=== PATIENT | male | born 1985 | race Caucasian/White ===

== ENCOUNTER 2020-01-31 21:49 | Emergency (ER) | payer MEDICAID, SELFPAY ==
--- NOTE | 2020-01-31 22:03 | ED.WOUNDLAC ---
HPI - Wound/Laceration General Chief Complaint: Wound/Laceration Stated Complaint: laceration on L thumb Time Seen by Provider: 01/31/20 22:09 Source: patient Mode of arrival: ambulatory Limitations: no limitations History of Present Illness HPI narrative: 34-year-old right-handed man comes in today complaining of a laceration to his left dorsal thumb that occurred approximately 2 hours ago. Patient states he was using a knife to open a salad dressing model. He denies any numbness or tingling and states that he has had a tetanus shot within the last 5 years. Onset (ago): hour(s) (2) Extremity Location: Left: hand Place: home Patient tetanus UTD: Yes Context: accidental and sharp object use Associated symptoms: pain Treatments prior to arrival: bandage Related Data Home Medications Medication Instructions Recorded Confirmed No Home Medications 01/31/20 01/31/20 Allergies Allergy/AdvReac Type Severity Reaction Status Date / Time No Known Allergies Allergy Verified 01/31/20 22:19 Review of Systems Constitutional: Constitutional: Denies chills and Denies fever(s) Eyes: Eyes: Denies change in vision and Denies photophobia Cardiovascular: Cardiovascular: Denies chest pain and Denies radiating jaw, neck or arm pain Respiratory: Respiratory: Denies cough and Denies dyspnea Gastrointestinal: Gastrointestinal: Denies nausea and Denies vomiting Musculoskeletal: Musculoskeletal: Denies back pain and Denies joint swelling Integumentary/Breasts: Skin/Breast: Denies pruritus, Denies erythema and Denies rash Neurologic: Denies vertigo, Denies dizziness and Denies syncope Hematologic/Lymphatic: Hematologic/Lymphatic: Denies easy bleeding and Denies easy bruising Allergic/Immunologic: Allergic/Immunologic: Denies lip swelling and Denies wheezing [facility] Social History Social History (Updated 01/31/20 @ 22:45 by Kiet Walker MD) Smoking status: Never smoker Alcohol intake: never Substance use: never Living arrangements: with family Exam Const: General: healthy appearing, no acute distress and alert Orientation/consciousness: patient oriented x3 Resp: Effort & Inspection: normal respiratory effort and not labored Auscultation: clear to auscultation bilaterally, no rales, no rhonchi and no wheezes Cardio: Rate: regular rate Rhythm: regular rhythm Heart sounds: no murmurs Skin: General skin exam: normal color, no jaundice and no pallor Rashes: no rashes Other: 1 x 2 cm diagonal laceration across the dorsal aspect of the IP in the left thumb. Continuous bleeding. Distal neurovascular exam is intact. Neuro: General: patient oriented x3, moves all extremities, no focal motor deficits and CN's II-XI intact bilaterally Speech: normal speech Extrem: General: normal to inspection and no clubbing, cyanosis or edema Psych: Appearance: grossly normal and well kempt Mental Status: mental status grossly normal Affect: normal affect Attitude: cooperative Thought content: Yes Normal thought content present Procedures Laceration Laceration 1: Date: 01/31/20 Time: 22:15 Site: hand Side (If applicable): left Size (cm): 1.2 Description: linear Depth: simple, single layer Local Anesthetic: lidocaine 1% Amount of anesthesia used (mL): 2.5 Pre-repair: wound explored, irrigated extensively and deep structures intact ====== Skin Level ====== Skin layer closed with: nylon Size (cm): 4-0 Number of sutures: 4 Technique: simple, interrupted ====== Subcutaneous Layer ====== ====== Muscle Layer ====== ====== Tendon Layer ====== Discharge Plan Discharge Clinical Impression: Laceration of left thumb Patient Disposition: Home, Self-Care Condition: Stable Instructions: Care For Your Stitches (ED), Laceration (ED) Additional Instructions: 4 sutures to come out in 12 days. Keep th
[2020-01-31 22:20] VITALS: BP 165/108; PULSE 115; RESP 16; TEMP 36.8; O2SAT 98
== END 2020-01-31 23:00 | disposition home or self-care (01) ==
PROVIDERS: Emergency Provider Emergency Medicine
DX: S61.012A Laceration without foreign body of left thumb without damage to nail, initial encounter (principal); W26.0XXA Contact with knife, initial encounter
CPT/HCPCS: 12001; 99282

== ENCOUNTER 2020-02-15 01:02 | Emergency (ER) | payer OTHER, SELFPAY ==
[2020-02-15 01:15] VITALS: BP 158/98; PULSE 94; RESP 18; TEMP 36.3; O2SAT 100
--- NOTE | 2020-02-15 01:27 | ED.LOWEXIN ---
HPI - Extremity Injury (Lower) General Chief Complaint: Wound/Laceration Stated Complaint: WOUND CHECK Source: patient Mode of arrival: ambulatory Limitations: no limitations History of Present Illness HPI Narrative: Left thumb laceration 01/30; accidental injury with a knife. Sutured at [facility]. Pt. states the area around the sutures was oozing and bloody starting 2.5 days ago, lasting for 1.5 days. Dima works at [employer] and at an [employer] shop. He's scheduled to work tomorrow; wondering how the wound looks and if he should go back to work tomorrow. Related Data Home Medications Medication Instructions Recorded Confirmed No Home Medications 01/31/20 01/31/20 Allergies Allergy/AdvReac Type Severity Reaction Status Date / Time No Known Allergies Allergy Verified 01/31/20 22:19 Review of Systems Constitutional: Constitutional: Denies chills and Denies fever(s) Musculoskeletal: Comments: Denies pain with thumb movement. No drainage or bleeding x 2 days. [facility] Social History Social History (Updated 01/31/20 @ 22:45 by Kiet Walker MD) Smoking status: Never smoker Alcohol intake: never Substance use: never Exam Extrem: Left upper extremity: hand (lac. dorsal L thumb, IP joint, sutured. Underlying swelling.Not red/tender) normal capillary refill, neuromotor exam normal, tendon exam abnormal, normal ROM of fingers and other (Full left thumb ROM and strength. Light touch thumb is intact. ); no unusual warmth Course Course Emergency Course: sutures removed. No dehiscence. No drainage. Vital Signs Vital signs: Vital Signs Temperature 36.3 C L 02/15/20 01:15 Pulse Rate 94 02/15/20 01:15 Respiratory Rate 18 02/15/20 01:15 Blood Pressure 158/98 H 02/15/20 01:15 Pulse Oximetry 100 02/15/20 01:15 Temperature 36.3 C L 02/15/20 02:15 Pulse Rate 91 02/15/20 02:15 Respiratory Rate 20 02/15/20 02:15 Blood Pressure 158/94 H 02/15/20 02:15 Pulse Oximetry 100 02/15/20 02:15 MDM - Extremity Injury (Lower) MDM Narrative Medical decision making narrative: Wound is healing. No need to be off work. Discharge Plan Discharge Clinical Impression: Laceration of left thumb Patient Disposition: Home, Self-Care Condition: Stable Instructions: Laceration (ED) Additional Instructions: Follow up with your primary care doctor if pain, redness or discharge or no improvement in one week. Okay to return to work tomorrow. Prescriptions: No Action No Home Medications RF: 0 Follow-up/Referrals: UNKNOWN,DOCTOR [Primary Care Provider] - Time of Disposition: 01:34 Discharge Date/Time: 02/15/20 02:20
[2020-02-15 02:15] VITALS: BP 158/94; PULSE 91; RESP 20; TEMP 36.3; O2SAT 100
== END 2020-02-15 02:20 | disposition home or self-care (01) ==
PROVIDERS: Emergency Provider Family Medicine
DX: S61.012D Laceration without foreign body of left thumb without damage to nail, subsequent encounter (principal); W26.0XXD Contact with knife, subsequent encounter
CPT/HCPCS: 99281

== ENCOUNTER 2020-03-24 01:06 | Emergency (ER) | payer OTHER, SELFPAY ==
--- NOTE | ~2020-03-24 | XR_ITS ---
EXAMINATION: XR elbow RT min 3V DATE: 03/24/2020 01:37 INDICATION: Right elbow pain. Injury 5 days ago. TECHNIQUE: 4 views of right elbow were obtained. COMPARISON: None. FINDINGS: Bone alignment is normal. No fracture. Joint spaces are well maintained. There is no elbow joint effusion. There is soft tissue swelling overlying the olecranon. IMPRESSION: 1. No fracture. Reviewed, dictated and finalized at location A. IMPRESSION: 1. No fracture.
[2020-03-24 01:19] VITALS: BP 163/97; PULSE 99; RESP 18; TEMP 36.8; O2SAT 99
--- NOTE | 2020-03-24 01:30 | ED.UPPEXIN ---
HPI - Extremity Injury (Upper) General Chief Complaint: Extremity Injury, Upper Stated Complaint: 34YO male w/ right elbow PAIN after injury where he hit his elbow on corner of furniture 5 days ago. Here for eval but admits swelling has gotten better. Related Data Allergies Allergy/AdvReac Type Severity Reaction Status Date / Time No Known Allergies Allergy Verified 02/23/20 07:06 Review of Systems Review of Systems: All systems reviewed & are unremarkable except as noted in HPI and below Constitutional: Constitutional: Reports no additional constitutional complaints Cardiovascular: Cardiovascular: Reports no additional cardiovascular complaints Respiratory: Respiratory: Reports no additional respiratory complaints Gastrointestinal: Gastrointestinal: Reports no additional gastrointestinal complaints Musculoskeletal: Musculoskeletal: Reports arthralgias (Posterior R Elbow pain) Integumentary/Breasts: Skin/Breast: Reports system reviewed and no additional complaints, except as docu and Reports as per HPI Neurologic: Reports system reviewed and no additional complaints, except as documented PMFSH Past Medical History Medical History Benign essential HTN Generalized anxiety disorder No active medical problems Surgical History Surgical History H/O right knee surgery History of hernia repair As a child Social History Social History Smoking status: Never smoker Alcohol intake: never Substance use: never Exam Const: General: no acute distress and alert Orientation/consciousness: patient oriented x3 HENMT: Head: normal to inspection Eyes: Pupils: Equal, round and reactive pupils present Neck: Neck: normal visual inspection Chest: Chest palpation & inspection: normal inspection of the chest Resp: Effort & Inspection: normal respiratory effort Auscultation: clear to auscultation bilaterally Cardio: Rate: regular rate Neuro: General: patient oriented x3, moves all extremities, no focal motor deficits and CN's II-XI intact bilaterally Extrem: Other: Posterior R Elbow pain with mild erythema and swelling Psych: Mental Status: mental status grossly normal Course Course Emergency Course: X-rays negative. D/C Home w/ NSAID's and ICE Vital Signs Vital signs: Vital Signs Temperature 98.2 F 03/24/20 01:19 Pulse Rate 99 03/24/20 01:19 Respiratory Rate 18 03/24/20 01:19 Blood Pressure 163/97 H 03/24/20 01:19 Pulse Oximetry 99 03/24/20 01:19 Temperature 98.2 F 03/24/20 01:19 Pulse Rate 99 03/24/20 01:19 Respiratory Rate 18 03/24/20 01:19 Blood Pressure 163/97 H 03/24/20 01:19 Pulse Oximetry 99 03/24/20 01:19 MDM - Extremity Injury (Upper) Differential Diagnosis Differential diagnosis: Likely other (Contusion) Medical Records Attestation: I reviewed the patient's medical records. Imaging Data Attestation: I personally reviewed and interpreted this imaging study as follows: My impression: No Fx, STS Radiologist's impression: No Fx, STS Critical Care Time Critical Care Time Critical Care Time: No Discharge Plan Discharge Clinical Impression: Contusion of elbow, right Qualifiers: Encounter type: initial encounter Qualified Code(s): S50.01XA - Contusion of right elbow, initial encounter Patient Disposition: Home, Self-Care Condition: Stable Instructions: Antibiotic Form Additional Instructions: F/U with PMD in 5-7 days Prescriptions: New naproxen 500 mg tablet 500 mg PO BID PRN (Reason: pain) Qty: 20 RF: 0 No Action lisinopril 20 mg tablet 20 mg PO DAILY Qty: 90 RF: 0 Follow-up/Referrals: UNKNOWN,DOCTOR [Primary Care Provider] - Stand Alone Forms: Work/School Release IP Time of Disposition: 02:07
[2020-03-24 02:12] VITALS: BP 158/89; PULSE 82; RESP 20; TEMP 36.6; O2SAT 99
== END 2020-03-24 02:32 | disposition home or self-care (01) ==
PROVIDERS: Emergency Provider Family Medicine
DX: S50.01XA Contusion of right elbow, initial encounter (principal); W22.03XA Walked into furniture, initial encounter
CPT/HCPCS: 73080; 99283; A9270

== ENCOUNTER 2021-08-15 23:44 | Emergency (ER) | payer SELFPAY ==
[2021-08-15 23:45] VITALS: BP 147/95; PULSE 120; RESP 20; TEMP 36.1; O2SAT 99
[2021-08-16 01:03] VITALS: BP 147/95; PULSE 90; RESP 20; TEMP 36.1; O2SAT 100
[2021-08-16] MEDS: KETOROLAC (*BKC) 60 MG/2 ML VIAL IM (01:15)
[2021-08-16] MEDS: WATER, STERILE FOR INJECTION 10 ML VIAL XX (01:15)
[2021-08-16] MEDS: LIDOCAINE HCL 2% PF INJ 5 ML VIAL 4 ML INFILTRATE (01:15)
[2021-08-16] MEDS: cefTRIAXone 1 GM VIAL IM (01:16)
--- NOTE | 2021-08-16 01:44 | ED.SKABFB ---
HPI - Skin/Abscess/Foreign Bdy General Chief complaint: Skin/Abscess/Foreign Body Stated complaint: abcess on Right arm Time Seen by Provider: 08/15/21 23:46 Source: patient Mode of arrival: ambulatory Limitations: no limitations History of Present Illness complaint: abscess/boil Onset (ago): day(s) (3) Tetanus up to date: unsure Location: RUE (distal anterior right arm abscess) Severity: moderate Severity scale (1-10): 7 Quality: aching Pain Consistency: constant Relieving factors: none Exacerbating factors: movement Associated symptoms: denies other symptoms Treatments prior to arrival: antibiotic Related Data Home Medications Medication Instructions Recorded Confirmed sulfamethoxazole-trimethoprim 1 tablet PO Q12H 08/16/21 08/16/21 [Bactrim DS] Allergies Allergy/AdvReac Type Severity Reaction Status Date / Time No Known Allergies Allergy Verified 02/23/20 07:06 Review of Systems Review of Systems: All systems reviewed & are unremarkable except as noted in HPI and below Musculoskeletal: Musculoskeletal: Reports myalgias (anterior right arm redness and swelling) PMFSH Past Medical History Medical History Abscess of skin or subcutaneous tissue Benign essential HTN Generalized anxiety disorder No active medical problems Surgical History Surgical History H/O right knee surgery History of hernia repair As a child Social History Social History Smoking status: Never smoker Alcohol intake: never Substance use: never Exam Const: General: no acute distress and alert Nutritional Appearance: well nourished Orientation/consciousness: patient oriented x3 Limitations: no limitations HENMT: Head: normal to inspection Ears: TM's normal bilaterally General nose exam: Normal external nose present and Normal nares present Face and sinus: normal facial exam Mouth: Yes lip normal and Yes moist mucous membranes Eyes: Conjunctivae: conjunctivae normal Pupils: Equal, round and reactive pupils present EOM: EOMs intact bilaterally Neck: Neck: normal visual inspection and no lymphadenopathy Chest: Chest palpation & inspection: normal inspection of the chest Resp: Effort & Inspection: normal respiratory effort Auscultation: clear to auscultation bilaterally Cardio: Rate: regular rate Rhythm: regular rhythm GI: Auscultation: normal bowel sounds : General: Yes bladder normal to palpation and Yes no CVA tenderness Male General Exam: Yes normal external exam Testes: Testes normal Back/Spine/Pelvis: Back: no CVA tenderness Skin: General skin exam: normal color Rashes: no rashes Other: 5cm x3 cm red, swollen, tender lesion. no acute drainage. Neuro: General: patient oriented x3, moves all extremities, no meningeal signs, no focal motor deficits and CN's II-XI intact bilaterally Extrem: General: normal to inspection and no pedal edema Psych: Appearance: grossly normal and well kempt Mental Status: mental status grossly normal Affect: normal affect Thought content: Yes Normal thought content present Course Course Emergency Course: pt was stable in the ED. Post I and D pt for home. Reevaluation(s) Reevaluation #1: Pt was less pain-ful in the ED. vss. Date: 08/16/21 Time: 00:36 Vital Signs Vital signs: Vital Signs Temperature 36.1 C L 08/15/21 23:45 Pulse Rate 120 H 08/15/21 23:45 Respiratory Rate 20 08/15/21 23:45 Blood Pressure 147/95 H 08/15/21 23:45 Pulse Oximetry 99 08/15/21 23:45 Temperature 36.1 C L 08/16/21 01:03 Pulse Rate 90 08/16/21 01:03 Respiratory Rate 20 08/16/21 01:03 Blood Pressure 147/95 H 08/16/21 01:03 Pulse Oximetry 100 08/16/21 01:03 Procedures Abscess I/D distal anterior right arm: Date of Incision: 08/16/21 Time of Incision: 00:25
--- NOTE | 2021-08-19 13:30 | PC.NURSE ---
attempted to notify pt of abnormal culture results. unable to contact pt. phone not in working order.
--- NOTE | 2021-08-22 19:01 | PC.NURSE ---
Pt had positive culture report. RN attempted to reach pt with number listed in chart x2 without success. Phone number will not connect
--- NOTE | 2021-08-23 14:06 | PC.NURSE ---
Emergency Contact listed on pt demographics called...no answer x3 attempts. messages left requesting pt return call for follow up information.
--- NOTE | 2021-08-23 14:08 | PC.NURSE ---
certified letter sent to pt's address requesting he call our ER for follow up information
== END 2021-08-16 01:58 | disposition home or self-care (01) ==
PROVIDERS: Emergency Provider Emergency Medicine
DX: L02.413 Cutaneous abscess of right upper limb (principal)
CPT/HCPCS: 10060; 87070; 87075; 87077; 87186; 87205; 96372; 99283; 99284; J0696; J1885

== ENCOUNTER 2021-12-06 10:28 | Emergency (ER) | payer OTHER, SELFPAY ==
[2021-12-06 11:39] VITALS: BP 157/114; PULSE 58; RESP 20; TEMP 36.4; O2SAT 98
--- NOTE | 2021-12-06 11:51 | ED.SKABFB ---
HPI - Skin/Abscess/Foreign Bdy General Chief complaint: Skin/Abscess/Foreign Body Stated complaint: skin sores Time Seen by Provider: 12/06/21 11:51 Source: patient History of Present Illness HPI narrative: 35-year-old male with a history of hypertension and recurrent skin infections presents to the ER with -- generalized folliculitis -- Hypertension -- generalized headache for the past few days -- increased stress secondary to his girlfriend leaving him complaint: abscess/boil Onset (ago): day(s) Tetanus up to date: yes Location: generalized Quality: aching Relieving factors: none Exacerbating factors: none Related Data Allergies Allergy/AdvReac Type Severity Reaction Status Date / Time cyclobenzaprine AdvReac Unknown Verified 12/06/21 11:57 [From Flexeril] Review of Systems Review of Systems: All systems reviewed & are unremarkable except as noted in HPI and below Constitutional: Constitutional: Reports as per HPI and Reports no additional constitutional complaints Eyes: Eyes: Reports as per HPI and Reports no additional eye complaints ENT: Reports system reviewed and no additional complaints, except as documented Cardiovascular: Cardiovascular: Reports as per HPI and Reports no additional cardiovascular complaints Respiratory: Respiratory: Reports as per HPI and Reports no additional respiratory complaints Gastrointestinal: Gastrointestinal: Reports as per HPI and Reports no additional gastrointestinal complaints Genitourinary: Genitourinary: Reports no additional male genitourinary complaints Musculoskeletal: Musculoskeletal: Reports no additional musculoskeletal complaints Integumentary/Breasts: Skin/Breast: Reports system reviewed and no additional complaints, except as docu Neurologic: Reports system reviewed and no additional complaints, except as documented and Reports headache(s) Psychiatric: Psychiatric: Reports anxiety Endocrine: Endocrine: Reports no additional endocrine complaints Hematologic/Lymphatic: Hematologic/Lymphatic: Reports no additional hematologic/lymphatic complaints Allergic/Immunologic: Allergic/Immunologic: Reports no additional allergic/immunologic complaints PMFSH Past Medical History Medical History Abscess of skin or subcutaneous tissue Benign essential HTN Generalized anxiety disorder No active medical problems Surgical History Surgical History H/O right knee surgery History of hernia repair As a child Social History Social History Smoking status: Never smoker Alcohol intake: never Substance use: never Exam Const: General: no acute distress and alert Orientation/consciousness: patient oriented x3 HENMT: Head: normal to inspection Eyes: Conjunctivae: conjunctivae normal Pupils: Equal, round and reactive pupils present Neck: Neck: normal visual inspection, no lymphadenopathy and no meningeal signs Chest: Chest palpation & inspection: normal inspection of the chest Resp: Effort & Inspection: normal respiratory effort Auscultation: clear to auscultation bilaterally Cardio: Rate: regular rate Rhythm: regular rhythm Other: hypertension with a blood pressure of 157/114 GI: GI Palp: Yes Soft to palpation Other: no tenderness/ rigidity /rebound. : Testes: Testes normal Back/Spine/Pelvis: Back: no CVA tenderness Skin: Other: Multiple folliculitis lesions more in the extremities and in the groin Neuro: General: patient oriented x3, moves all extremities and no meningeal signs Extrem: General: normal to inspection Psych: Mental Status: mental status grossly normal Course Vital Signs Vital signs: Vital Signs Temperature 36.4 C L 12/06/21 11:39 Pulse Rate 58 L 12/06/21 11:39 Respiratory Rate 20 12/06/21 11:39 Blood Pressure 157/114 H 12/06/21
[2021-12-06 12:44] VITALS: BP 169/108; PULSE 98; RESP 20; TEMP 36.7; O2SAT 99
== END 2021-12-06 12:55 | disposition home or self-care (01) ==
PROVIDERS: Emergency Provider Internal Medicine Critical Care Medicine
DX: L73.9 Follicular disorder, unspecified (principal); I10 Essential (primary) hypertension; F41.9 Anxiety disorder, unspecified
CPT/HCPCS: 99283

== ENCOUNTER 2023-01-08 08:50 | Emergency (ER) | payer MEDICAID, SELFPAY ==
--- NOTE | ~2023-01-08 | CT_ITS ---
EXAMINATION: CT abdomen pelvis wo con DATE: 01/08/2023 10:13 INDICATION: Left flank pain TECHNIQUE: Computed tomography (CT) of the abdomen and pelvis was performed without intravenous contr ast. The dose-length product (DLP) was 897.95 mGy-cm. Automated exposure control and iterative recons truction technique were employed. COMPARISON: None FINDINGS: Minimal dependent atelectasis is present in the lung bases. The heart size is normal. The l iver, spleen, pancreas, gallbladder, and adrenal glands are normal. The right kidney is unremarkable. There is a 2 mm stone of the distal left ureter which causes mild hydroureteronephrosis. No patholog ically enlarged abdominal or pelvic lymph nodes are identified. No free intraperitoneal gas or eviden ce of bowel obstruction. The appendix is normal. A small fat-containing umbilical hernia is noted. IMPRESSION: 1. 2 mm stone of the distal left ureter causing mild hydroureteronephrosis. Reviewed, dictated and finalized at location L.
[2023-01-08 08:50] VITALS: BP 140/94; PULSE 92; RESP 18; TEMP 36.5; O2SAT 100
--- NOTE | 2023-01-08 09:17 | ED.ABDPAIN ---
HPI - Abdominal Pain General Chief Complaint: Unspecified Stated Complaint: left flank pain\left leg pain Time Seen by Provider: 01/08/23 09:16 Source: patient and RN notes reviewed Mode of arrival: ambulatory Limitations: no limitations History of Present Illness HPI narrative: Patient also states he has swelling in his left leg that has been there for approximately 7-10 days. It is red tender over the left calf with a central healing wound. Apparently it has had some drainage from it. Says it hurts to walk on nothing really makes it better. He has not sought any medical care for this. Today he is here for left flank pain that started just prior to arrival. MD elicited complaint: flank pain Pertinent past history: none Onset (ago): hour(s) (2) Pain Consistency: constant Location: L flank Severity: moderate Quality: stabbing and sharp Radiation: none Migration to: no migration Exacerbating factors: nothing Relieving factors: nothing Associated symptoms: denies other symptoms Related Data Allergies Allergy/AdvReac Type Severity Reaction Status Date / Time cyclobenzaprine AdvReac Unknown Verified 01/08/23 09:10 [From Flexeril] Review of Systems Review of Systems: All systems reviewed & are unremarkable except as noted in HPI and below Constitutional: Constitutional: Denies chills and Denies fever(s) PMFSH Past Medical History Medical History Abscess of skin or subcutaneous tissue Benign essential HTN Generalized anxiety disorder Surgical History Surgical History H/O right knee surgery History of hernia repair As a child Social History Social History Smoking status: Never smoker Alcohol intake: never Substance use: never Living arrangements: with family Exam Const: General: healthy appearing, no acute distress and alert Nutritional Appearance: well nourished Orientation/consciousness: patient oriented x3 Limitations: no limitations HENMT: Head: normal to inspection Ears: external ears normal Face/Nose/Sinus: Normal external nose present Face and sinus: normal facial exam Mouth: Yes moist mucous membranes Eyes: Conjunctivae: conjunctivae normal Pupils: Equal, round and reactive pupils present EOM: EOMs intact bilaterally Neck: Neck: normal visual inspection Resp: Effort & Inspection: normal respiratory effort Auscultation: clear to auscultation bilaterally Cardio: Rate: regular rate Rhythm: regular rhythm GI: GI Palp: Yes Soft to palpation and Yes Tenderness to palpation present (GI) ( left upper quadrant moderat) Auscultation: normal bowel sounds Back/Spine/Pelvis: Back: CVA tenderness ( moderate left flank) Cervical Spine: cervical ROM normal Thoracic/Lumbar Spine: thoraco-lumbar ROM normal Skin: General skin exam: elasticity normal and turgor normal Rashes: no rashes Neuro: General: patient oriented x3, moves all extremities, no focal motor deficits and CN's II-XI intact bilaterally Speech: normal speech Gait exam (Neuro): Normal gait present Extrem: General: normal exam except as noted and no clubbing, cyanosis or edema Left lower extremity: lower leg Details: erythema Location: of the mid lower leg Location: anteriorly and posteriorly, tenderness Location: of the posterior calf, localized swelling Location: of the mid lower leg, warmth Location: of the mid lower leg and other ( There is a 1 cm diameter excoriated area that is scabbed over on the posterior calf) Psych: Mental Status: mental status grossly normal Affect: normal affect Attitude: cooperative Course Vital Signs Vital signs: Vital Signs Temperature 36.5 C 01/08/23 08:50 Pulse Rate 92 01/08/23 08:50 Respiratory Rate 18 01/08/23 08:50 Blood Pressure 140/94 H 01/08/23 08:50 Pulse Oximetry 100 01/08/23 08:50 Oxygen Delivery Room A
[2023-01-08 09:42] LABS: Basophils Absolute Auto 0.08 K/mm3 (0.00-0.10); Basophils Percent Auto 0.7 % (0.0-1.0); Eosinophils Absolute Auto 0.39 K/mm3 (0.02-0.50); Eosinophils Percent Auto 3.4 % (1.0-6.0); Hemoglobin 13.9 g/dL (14.0-18.0); Immature Granulocyte Percent A 0.9 % (0.0-0.0); Lymphocytes Absolute Auto 1.09 K/mm3 (1.10-4.50); Lymphocytes Percent Auto 9.4 % (18.0-42.0); Mean Corpuscular HGB Conc 31.6 g/dL (32.0-36.0); Mean Corpuscular Hemoglobin 27.5 pg (27.0-31.0); Mean Corpuscular Volume 87.1 fL (78.0-102.0); Mean Platelet Volume 8.7 fl (8.7-11.0); Monocytes Absolute Auto 0.81 K/mm3 (0.10-0.90); Neutrophils Absolute Auto 9.1 K/mm3 (1.7-7.2); Neutrophils Percent Auto 78.6 % (50.0-70.0); Platelet Count Result 385 K/mm3 (150-420); Red Blood Count 5.05 M/mm3 (4.70-6.10); White Blood Count 11.6 K/mm3 (4.8-10.8)
[2023-01-08] MEDS: KETOROLAC 30 MG/ML VIAL (*BKC) IV PUSH (09:53)
[2023-01-08 09:57] LABS: Alanine Aminotransferase 83 U/L (16-63); Albumin Level 3.7 g/dL (3.4-5.0); Alkaline Phosphatase 75 U/L (46-116); Anion Gap 8 mmol/L (8-16); Aspartate Amino Transferase 35 U/L (15-37); Bilirubin,Total 0.3 mg/dL (0.00-1.00); Blood Urea Nitrogen 16 mg/dL (7-18); CRP 3.5 mg/dL (0.0-0.9); Calcium 8.9 mg/dL (8.5-10.1); Carbon Dioxide 28 mmol/L (21-32); Chloride 104 mmol/L (98-108); Estimated CRCL calculation 79 ml/min; Estimated Glomerular Filt Rate > 60; Glucose 124 mg/dL (70-99); Osmolality Calculated 292 mOsm/kg (285-295); Potassium 3.6 mmol/L (3.5-5.1); Sodium 140 mmol/L (136-145); Total Protein 7.4 g/dL (6.4-8.2)
[2023-01-08 10:02] LABS: Lactic Acid Reflex 1.7 mmol/L (0.4-2.0)
--- NOTE | 2023-01-08 10:23 | PC.NURSE ---
PT REPORTS MILD IMPROVEMENT WITH PAIN MEDICATION. PT IS AWAITING RESULTS AT THIS TIME. NO URINE SPECIMEN HAS BEEN PROVIDED OF YET. PT HAS BEEN EDUCATED SEVERAL TIMES, HE IS AWARE OF THE NEED FOR A SAMPLE. PT IS LYING ON STRETCHER MOANING AT THIS TIME. MOTHER AT BEDSIDE. ERP IS AWARE OF PT PAIN LEVEL AT THIS TIME. WILL CONTINUE TO MONITOR.
[2023-01-08] MEDS: MORPHINE SULFATE (*CRX) 4 MG/ML INJ IV PUSH (10:40)
[2023-01-08 10:44] VITALS: BP 144/98; PULSE 95; RESP 18; TEMP 36.7; O2SAT 100
--- NOTE | 2023-01-14 12:04 | PC.NURSE ---
FINAL BLOOD CULTURE X 2 : NO GROWTH AFTER 5 DAYS
== END 2023-01-08 11:04 | disposition home or self-care (01) ==
PROVIDERS: Emergency Provider Emergency Medicine; PCP Family Medicine
DX: N13.2 Hydronephrosis with renal and ureteral calculous obstruction (principal); L03.116 Cellulitis of left lower limb; I10 Essential (primary) hypertension; F41.9 Anxiety disorder, unspecified
CPT/HCPCS: 36415; 74176; 80053; 83605; 85025; 86140; 87040; 96374; 96375; 99284; J1885; J2270